=== PATIENT | female | born 1970 | race Caucasian/White ===

== ENCOUNTER 2017-06-10 17:03 | Emergency (ER) | payer MEDICAID ==
[~2017-06-10] VITALS: Ht 177.8 cm; Wt 76.7 kg
--- NOTE | 2017-06-10 17:12 | NUR ---
PT AMBULATORY TO ER BED 12. C/O LFA PAIN, ITCHING AND REDNESS POST BEE STING YESTERDAY MORNING. STATES SHE PUT A MARKER AND GOT CONCERNED BECAUSE REDNESS IS SPREADING. DENIES SOB. STABLE VITALS. NAD NOTED. AWAITING MD MADRIGAL.
--- NOTE | 2017-06-10 17:32 | NUR ---
DR HUNTER AT BEDSIDE FOR EVAL.
[2017-06-10] MEDS ORDERED: diphenhydrAMINE HCL 50 MG/ML VIAL ONE (17:59)
[2017-06-10] MEDS ORDERED: methylPREDNISolone SOD SUCC 125 MG/2ML VIAL ONE (17:59)
[2017-06-10] MEDS ORDERED: IV NS 0.9% 1,000 ML BAG IV ONE (18:00)
[2017-06-10] MEDS ORDERED: diphenhydrAMINE HCL 50 MG/ML VIAL IV ONE (18:00)
[2017-06-10] MEDS ORDERED: FAMOTIDINE/PF INJ 40 MG in IV D5W 250 ML IV ONE (18:00)
[2017-06-10] MEDS ORDERED: methylPREDNISolone SOD SUCC 125 MG/2ML VIAL IV ONE (18:00)
--- NOTE | 2017-06-10 19:34 | NUR ---
Patient discharged to home in stable condition. Written and verbal after care instructions given. Patient verbalizes understanding of instruction.IV removed. Catheter intact and site benign. Pressure and 4x4 applied to site. No bleeding noted.
[2017-06-10 19:35] VITALS: BP 132/84
== END 2017-06-10 19:36 | disposition home or self-care (01) ==
LOC: ER 17:08
DX: T63.441A Toxic effect of venom of bees, accidental (unintentional), initial encounter (principal); Y92.89 Other specified places as the place of occurrence of the external cause
CPT/HCPCS: 96365; 96375; 99284; A4606; J1200; J2930; J3490; J7030; J7060; Z7610